=== PATIENT | male | born 1960 | race Caucasian/White ===

== ENCOUNTER 2018-02-17 21:48 | Emergency (ER) | payer OTHER ==
[2018-02-17] MEDS ORDERED: Sulfacetamide 10% Ophth Soln 15 ML Bottle EYERT ONE (21:49)
[2018-02-17] MEDS ORDERED: Fluorescein 1 MG Ophth Strip EYERT ONE ×2 (21:51→22:18)
[2018-02-17] MEDS ORDERED: Tetracaine HCl/PF 0.5% 4 ML Bottle EYERT ONE (21:51)
[2018-02-17] MEDS ORDERED: Fluorescein 1 MG Ophth Strip EYEBOTH ONE (21:52)
--- NOTE | 2018-02-17 21:57 | EDM.PDOC ---
ED HPI GENERAL MEDICAL PROBLEM - General Chief Complaint: Eye Problems Stated Complaint: METAL IN EYE [id number] Time Seen by Provider: 02/17/18 21:57 Source of Information: Reports: Patient, Family, RN, RN Notes Reviewed History Limitations: Reports: No Limitations - History of Present Illness INITIAL COMMENTS - FREE TEXT/NARRATIVE: Pt to the ER with his with c/o metal in the right eye. 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 Patient states the pain has been bothering him quite a bit and he continues to rub the eye. Patient states he had a TDap about 1 month ago. Onset: Today, Sudden Duration: Constant Right Eye Pain Score (Numeric/FACES): 10 - Related Data Allergies Allergy/AdvReac Type Severity Reaction Status Date / Time No Known Allergies Allergy Verified 02/17/18 21:57 Home Meds: Home Meds Cyclobenzaprine [Flexeril] 1 tab PO Q8HR PRN 05/20/13 [History] amLODIPine Besylate [Amlodipine Besylate] 1 tab PO DAILY 05/20/13 [History] carBAMazepine [Carbamazepine Xr] 1 tab PO BID 05/20/13 [History] carBAMazepine [Tegretol XR] 1 tab PO BID 05/20/13 [History] Ezetimibe [Zetia] 10 mg PO DAILY 02/17/18 [History] ED ROS GENERAL - Review of Systems Review Of Systems: ROS reveals no pertinent complaints other than HPI. ED EXAM GENERAL W FULL EYE - Physical Exam Exam: See Below Exam Limited By: No Limitations General Appearance: Alert, WD/WN, Moderate Distress Eye Exam: Bilateral Eye: EOMI, Normal Inspection Visual Acuity (R) 20/: 25 Visual Acuity (L) 20/: 40 With Correction: Yes Eyelids: Bilateral: Normal Appearance Conjunctiva & Sclera: Right: Foreign Body, Injected, Left: Normal Appearance Cornea Exam: Right: Corneal Abrasion, Foreign Body, Examined with Flourescein, Left: Normal Appearance Extraocular Movements: Bilateral: Intact Pupils: Normal Accommodation Pupillary Size: Right: 3 mm, Left: 4 mm Pupillary Reaction: Bilateral: Brisk Ears: Normal External Exam, Hearing Grossly Normal Nose: Normal Inspection Throat/Mouth: Normal Inspection, Normal Voice, No Airway Compromise Head: Atraumatic, Normocephalic Neck: Normal Inspection, Supple, Non-Tender, Full Range of Motion Respiratory/Chest: No Respiratory Distress, Lungs Clear, Normal Breath Sounds, No Accessory Muscle Use, Chest Non-Tender Cardiovascular: Normal Peripheral Pulses, Regular Rate, Rhythm, No Edema, No Gallop, No JVD, No Murmur, No Rub GI/Abdominal: Normal Bowel Sounds, Soft, Non-Tender (Male) Exam: Deferred Rectal (Males) Exam: Deferred Back Exam: Normal Inspection, Full Range of Motion Extremities: Normal Inspection, Normal Range of Motion, Non-Tender, Normal Capillary Refill, No Pedal Edema Neurological: Alert, Oriented, CN II-XII Intact, Normal Cognition, Normal Gait, Normal Reflexes, No Motor/Sensory Deficits Psychiatric: Normal Affect, Normal Mood Skin Exam: Warm, Dry, Intact, Normal Color, No Rash Lymphatic: No Adenopathy ED EYE w/ Add Procedure - Eye Procedure Alcaine Drops Administered: Yes Eye FB Removal: Removal w/ Cotton Swab, Removal w/ Needle, Other (Cris) Eye Irrigated w/ Saline (ccs): 3 Antibiotic Oinment/Drps Admin: Right Eye (Sulfacetamide) Course - Vital Signs Last Recorded V/S: Last Vital Signs Temp 97.1 F 02/17/18 21:51 Pulse 63 02/17/18 21:51 Resp 17 02/17/18 21:51 BP 142/80 H 02/17/18 21:51 Pulse Ox 100 02/17/18 21:51 - Orders/Labs/Meds Meds: Medications Discontinued Medications Generic Name Dose Route Start Last Admin Trade Name Zia PRN Reason Stop Dose Admin Fluorescein Sodium 1 mg 02/17/18 21:51 02/17/18 22:04 Ful-Caterina EYERT 02/17/18 21:52 1 mg ONETIME ONE Administration Fluorescein Sodium 1 mg 02/17/18 21:52 Ful-Caterina EYEBOTH 02/17/18 21:53 ONETIME ONE Fluorescein Sodium 1 mg 02/17/18 22:18 02/17/18 22:37 Ful-Caterina EYERT 02/17/18 22:19 1 mg ONETIME ONE Administration Fluorescein Sodium Confirm 02/17/18 22:19 02/17/18 22:38 Ful-Caterina Administered 02/17/18 22:20 Not Given Dose 1 mg .ROUTE .STK-MED ONE Sulfacetamide Confirm 02/17/18 21:58 02/17/18 22:04 Bleph-10 Ophth Soln Administered 02/17/18 21:59 Not Given Dose 15 ml .ROUTE .STK-MED ONE Tetracaine HCl 1 ml 02/17/18 21:51 02/17/18 22:03 Tetracaine 0.5% Steri-Unit Mariah EYERT 02/17/18 21:52 2 drop ASDIRECTED ONE Administration Tetracaine HCl Confirm 02/17/18 22:19 02/17/18 22:37 Tetracaine 0.5% Steri-Unit Mariah Administered 02/17/18 22:20 2 drop Dose Administration 4 ml .ROUTE .STK-MED ONE Departure - Departure Time of Disposition: 22:39 Disposition: Home, Self-Care 01 Condition: Fair Clinical Impression: Corneal abrasion Qualifiers: Encounter type: initial encounter Laterality: right Qualified Code(s): S05.01XA - Injury of conjunctiva and corneal abrasion without foreign body, right eye, initial encounter Foreign body of right eye Qualifiers: Encounter type: initial encounter Qualified Code(s): T15.91XA - Foreign body on external eye, part unspecified, right eye, initial encounter - Discharge Information *PRESCRIPTION DRUG MONITORING PROGRAM REVIEWED*: No *COPY OF PRESCRIPTION DRUG MONITORING REPORT IN PATIENT HINA: No Instructions: Eye Foreign Body, [id number], Corneal Abrasion, [id number] Forms: ED Department Discharge Additional Instructions: Follow up with your Eye doctor in the morning for recheck of the eye Sulfacetamide 4 times a day for 4 days Try not to rub the eye.
[2018-02-17] MEDS ORDERED: Sulfacetamide 10% Ophth Soln 15 ML Bottle ONE (21:58)
[2018-02-17] MEDS ORDERED: Fluorescein 1 MG Ophth Strip ONE (22:19)
[2018-02-17] MEDS ORDERED: Tetracaine HCl/PF 0.5% 4 ML Bottle ONE (22:19)
== END 2018-02-17 22:45 | disposition home or self-care (01) ==
LOC: DL.ED 21:48
DX: T15.01XA Foreign body in cornea, right eye, initial encounter (principal); Z79.899 Other long term (current) drug therapy; X58.XXXA Exposure to other specified factors, initial encounter
CPT/HCPCS: 65220; 99283; A9270

== ENCOUNTER 2022-07-21 15:18 | Emergency (ER) | payer BC, OTHER ==
[2022-07-21] MEDS ORDERED: Lidocaine 1% 5 ML VIAL INFILT ONE (16:10)
[2022-07-21] MEDS ORDERED: Bacitracin Oint 1 GM U/D Packet TOP ONE (16:11)
== END 2022-07-21 16:50 | disposition home or self-care (01) ==
LOC: DL.ED 15:18
DX: S61.211A Laceration without foreign body of left index finger without damage to nail, initial encounter (principal); W26.0XXA Contact with knife, initial encounter
CPT/HCPCS: 12001; 99282; A9270-GY; J3490

== ENCOUNTER 2023-10-05 09:38 | Emergency (ER) | payer OTHER ==
[2023-10-05 10:53] LABS: BASOPHILS PERCENT AUTO 0.7 % (0.0-1.0); EOSINOPHILS PERCENT AUTO 0.6 % (1.0-3.0); HEMATOCRIT 44.3 % (40.0-54.0); HEMOGLOBIN 15.3 g/dL (14.0-18.0); LYMPHOCYTES PERCENT AUTO 25.5 % (20.5-50.1); MEAN CORPUSCULAR HEMOGLOBIN 31.9 pg (27.0-34.0); MEAN CORPUSCULAR HGB CONC 34.5 g/dL (33.0-35.0); MEAN CORPUSCULAR VOLUME 92.5 fL (80-100); MONOCYTES PERCENT AUTO 8.6 % (2-8); NEUTROPHILS PERCENT AUTO 64.6 % (42.2-75.2); PLATELET COUNT,PLT 288 10^3/uL (150-450); RED BLOOD CELL COUNT 4.79 10^6/uL (4.6-6.2); WHITE BLOOD CELL COUNT,WBC 6.7 10^3/uL (5.0-10.0)
[2023-10-05] MEDS: Meclizine 12.5 MG Tab PO ONE (11:00)
[2023-10-05 11:11] LABS: INR 0.9 (0.9-1.2); PROTHROMBIN TIME 9.7 SEC (9.0-12.0); PTT,PARTIAL THROMBOPLSTIN TIME 24.8 SEC (22.0-34.0)
[2023-10-05 11:14] LABS: B-TYPE NATRIURETIC PEPTIDE,BNP < 5 pg/ml (0-100)
[2023-10-05 11:15] LABS: A/G RATIO 1.1; ALANINE AMINOTRANSFERASE,ALT 22 U/L (16-63); ALBUMIN 4.1 g/dL (3.4-5.0); ALKALINE PHOSPHATASE 113 U/L (46-116); ANION GAP 10.9 mEq/L (7-13); ASPARTATE AMNIOTRANSFERASE,AST 14 U/L (15-37); BILIRUBIN TOTAL 0.4 mg/dL (0.2-1.0); BLOOD UREA NITROGEN,BUN 13 mg/dL (7-18); BUN/CREATININE RATIO 16.9 (No establ ref range); CALCIUM 9.7 mg/dL (8.5-10.1); CARBON DIOXIDE,CO2 31 mmol/L (21-32); CHLORIDE,CL 99 mmol/L (98-107); CREATININE 0.77 mg/dL (0.70-1.30); EST CRCL DRUG DOSING (CG) 90.33 mL/min; GLUCOSE RANDOM 90 mg/dL (70-99); MAGNESIUM 1.8 mg/dL (1.8-2.4); POTASSIUM,K 3.9 mmol/L (3.5-5.1); PROTEIN TOTAL,TP 7.8 g/dL (6.4-8.2); SODIUM,NA 137 mmol/L (136-145)
[2023-10-05 11:16] LABS: ESTIMATED GFR 102 mL/min (>=60)
[2023-10-05] MEDS ORDERED: Meclizine 12.5 MG Tab PO ONE (11:29)
== END 2023-10-05 11:42 | disposition home or self-care (01) ==
LOC: DL.ED 09:38
DX: H81.13 Benign paroxysmal vertigo, bilateral (principal); I10 Essential (primary) hypertension; E78.00 Pure hypercholesterolemia, unspecified; F17.210 Nicotine dependence, cigarettes, uncomplicated; Z86.16 Personal history of COVID-19; Z79.899 Other long term (current) drug therapy
CPT/HCPCS: 36415; 70450; 80053; 82947; 83735; 83880; 84484; 85025; 85610; 85730; 93005; 99284; A9270; 93010